=== PATIENT | male | born 1965 | race Hispanic/Latino ===

== ENCOUNTER 2017-01-09 23:14 | Emergency (ER) | payer SELFPAY ==
[2017-01-10 03:59] VITALS: BP 106/70
[2017-01-10] MEDS ORDERED: TORADOL IM ONE (05:00)
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
== END 2017-01-10 06:00 | disposition home or self-care (01) ==
LOC: ED 23:14
DX: M54.42 Lumbago with sciatica, left side (principal); G89.29 Other chronic pain
CPT/HCPCS: 96372; 99283; J1885